=== PATIENT | female | born 1995 | race Two or more races ===

== ENCOUNTER 2020-08-07 12:30 | Inpatient (IN) | payer OTHER ==
[~2020-08-07] VITALS: Ht 177.8 cm; Wt 81.6 kg
[2020-08-11] MEDS ORDERED: PRENATAL TABLE1 EAC1 PO (13:57)
== END 2020-08-13 14:08 | disposition home or self-care (01) | DRG 807 ==
LOC: LDR 08-11 12:30 → SURG-SUITE 08-11 21:54 → OB/GYN 08-19 12:30
PROVIDERS: ADMIT Obstetrics & Gynecology; ATTEND Obstetrics & Gynecology
PROC: 10E0XZZ Delivery of Products of Conception, External Approach (ICD-10-PCS; principal; 2020-08-11)
PROC: 10907ZC Drainage of Amniotic Fluid, Therapeutic from Products of Conception, Via Natural or Artificial Opening (ICD-10-PCS; 2020-08-11)
PROC: 4A1HXFZ Monitoring of Products of Conception, Cardiac Rhythm, External Approach (ICD-10-PCS; 2020-08-11)
DX: O80 Encounter for full-term uncomplicated delivery (principal); Z37.0 Single live birth; Z3A.38 38 weeks gestation of pregnancy; Z20.822 Contact with and (suspected) exposure to COVID-19